=== PATIENT | male | born 1945 ===

== ENCOUNTER → 2017-10-12 | Outpatient (CLI) | payer OTHER | END | disposition home or self-care (01) | LOC: ROC 10-06 10:04 | PROVIDERS: ATTEND Radiology Radiation Oncology | DX: C44.311 Basal cell carcinoma of skin of nose (principal) | CPT/HCPCS: 99215; G0463 ==

== ENCOUNTER → 2017-12-07 | Outpatient (CLI) | payer OTHER | END | disposition home or self-care (01) | LOC: EDSTATUS 11-29 11:15 → ROC 07:44 | PROVIDERS: ATTEND Radiology Radiation Oncology | DX: C44.311 Basal cell carcinoma of skin of nose (principal) | CPT/HCPCS: 99212; G0463 ==

== ENCOUNTER 2018-07-02 08:19 | Outpatient (CLI) | payer OTHER | END 2018-07-02 23:59 | disposition home or self-care (01) | LOC: ROC 08:19 | PROVIDERS: ATTEND Radiology Radiation Oncology | DX: Z02.9 Encounter for administrative examinations, unspecified (principal) ==

== ENCOUNTER → 2018-08-12 | Outpatient (CLI) | payer OTHER | END | disposition home or self-care (01) | LOC: ROC 12:02 | PROVIDERS: ATTEND Radiology Radiation Oncology | DX: C44.311 Basal cell carcinoma of skin of nose (principal) | CPT/HCPCS: 99212; G0463 ==